=== PATIENT | male | born 1970 | race Caucasian/White ===

== ENCOUNTER 2016-12-30 12:59 | Emergency (ER) | payer OTHER ==
--- NOTE | 2017-01-07 14:40 | ER ---
ADMIT: 12/30/2016 RM/LOC: ER [facility] MR#: [id number] [address] [id number] PATRICIA VARMA [address] [place] [address] Emergency Room Report SEX: M AGE: 46 : 1970 DATE: 12/30/2016 ADDENDUM: This patient comes to the ER because he has had chest pain for the last 2-3 weeks. He feels like his left arm is heavy. He has been under quite a bit of stress and his pain seems to be worse with stress, but he is concerned because he has a grandfather who from a heart attack. On physical exam, I am unable to reproduce his chest pain. His lungs are clear and his O2 saturation is normal. Cardiac enzymes were normal. EKG was normal and his D-dimer was also normal. He was given Toradol IM. I wrote a prescription for meloxicam. If he is not feeling better in the next week, he is to follow up with his primary. Please see my T sheet. ANGEL Eli / Nura Sherman MD / philip JOB #: [id number] CC: Nura Sherman MD, Attending Physician Raffi Parekh MD, Family Physician
== END 2016-12-30 15:15 | disposition home or self-care (01) ==
LOC: ER 12:59
DX: R07.9 Chest pain, unspecified (principal); F32.9 Major depressive disorder, single episode, unspecified; G43.909 Migraine, unspecified, not intractable, without status migrainosus; F17.220 Nicotine dependence, chewing tobacco, uncomplicated; Z79.899 Other long term (current) drug therapy